=== PATIENT | female | born 1955 | race Hispanic/Latino ===

== ENCOUNTER 2017-08-18 13:57 | Outpatient (CLI) | payer BC ==
--- NOTE | 2017-08-18 14:22 | XRay Report ---
Bilateral knees: History: Knee pain. Findings: Narrowing of medial and patellofemoral compartment right and left knee joint. Sclerotic articular surfaces with early degenerative changes. No fracture or joint effusion. No soft tissue calcification. Impression: Degenerative changes medial and patellofemoral compartment knee joints.
== END 2017-08-18 13:58 | disposition home or self-care (01) ==
LOC: SPVIMAG 13:57
PROVIDERS: ATTEND Orthopaedic Surgery Sports Medicine
DX: M17.0 Bilateral primary osteoarthritis of knee (principal)